=== PATIENT | female | born 1970 | race Caucasian/White ===

== ENCOUNTER 2022-02-22 12:56 | Outpatient (CLI) | payer OTHER, SELFPAY ==
--- NOTE | 2022-02-22 13:00 | MR_ITS ---
[address] [address] Phone:?[phone] Fax:?[phone] Referring Physician Information: Evan Rodriguez M.D. [address] [facility] [address] Phone:?[phone] Fax:?[phone] Patient:Grace Montes D.O.B:?1970 Sex:?Female Phone:?[phone] [facility] MRN:?[id number] Exam Date:?02/22/2022 ? EXAM: MRI of the RIGHT SHOULDER, without contrast CLINICAL HISTORY: Chronic right shoulder pain without reported traumatic injury or previous surgery. 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 COMPARISONS: None available. TECHNICAL: MRI sequences of the right shoulder: Axials: PD, T2 Coronals: PD, STIR, T2 Sagittals: PD, T2 SEDATION: None CONTRAST: None FINDINGS: Bones: No fracture or suspicious bone marrow signal abnormality. Coracoacromial arch: Acromion: No os acromiale. Type I-II acromion. Acromiohumeral space: The bony distance is unremarkable. Coracohumeral space: The bony distance is unremarkable. Acromioclavicular joint: No acute injury, arthropathy, or inferior hypertrophy. Coracoclavicular ligament: The coracoclavicular ligament is intact. Rotator cuff muscles/tendons: Supraspinatus: Slight tendinopathy best seen on coronal series 4 image 14. No tendon tear or muscular atrophy. Infraspinatus: The infraspinatus tendon and muscle are intact. Teres minor: The teres minor tendon and muscle are intact. Subscapularis: The subscapularis tendon and muscle are intact. Labrum: No evidence of labral tear although evaluation is suboptimal because of nonarthrogram technique. Proximal biceps tendon, long head and short heads: The long and short heads of the proximal biceps tendon are intact. Glenohumeral joint: Physiologic amount of joint fluid. No full-thickness chondral defect or subchondral bone marrow edema/cystic change is seen. There is edema-like signal within and thickening of the glenohumeral joint capsule/inferior glenohumeral ligament best seen on coronal series 4 and 5 images 15 through 17. Bursae: Subacromial/subdeltoid: No convincing subacromial bursal thickening/bursitis. Subcoracoid: No convincing subcoracoid bursal thickening/bursitis. IMPRESSION: 1. Findings associated with adhesive capsulitis; correlate with active and passive range of motion. 2. Slight supraspinatus tendinopathy. 3. Otherwise, unremarkable MRI of the right shoulder without rotator cuff tendon tear, rotator cuff muscular atrophy, or biceps pathology. RCB Electronically signed on 02/25/2022 7:42:00 AM by Jesse Hayden M.D.
== END 2022-02-22 12:57 | disposition home or self-care (01) ==
LOC: MRI 13:01
PROVIDERS: PCP Family Medicine; Visit Provider Family Medicine
DX: M25.511 Pain in right shoulder (principal); M75.01 Adhesive capsulitis of right shoulder
CPT/HCPCS: 73221

== ENCOUNTER 2023-03-18 20:50 | Outpatient (CLI) | payer OTHER, SELFPAY | END 2023-03-18 20:51 | disposition home or self-care (01) | LOC: SLEEP 20:50 | PROVIDERS: PCP Family Medicine; Visit Provider Internal Medicine | DX: G47.33 Obstructive sleep apnea (adult) (pediatric) (principal) | CPT/HCPCS: 95806 ==